=== PATIENT | female | born 1950 | race Caucasian/White ===

== ENCOUNTER 2017-01-08 11:10 | Emergency (ER) | payer MEDICARE, OTHER ==
--- NOTE | ~2017-01-08 | ER ---
PATIENT'S NAME: YAMILET MENDOZA [facility] AGE: 66 Y [address] ROOM: [place] [id number] LOCATION: [facility] ADMIT DATE: 01/08/2017 ER/Outpatient Report DISCHARGE DATE: 01/08/2017 FAMILY PHYSICIAN: PHYSICIAN, NO ATTENDING PHYSICIAN: Ian Asher TIME OF ARRIVAL: 1110 hours. TIME OF EVALUATION: 1122 hours. CHIEF COMPLAINT: Shortness of breath. HISTORY OF PRESENT ILLNESS: The patient is a 66-year-old female who presents to the emergency department today with a chief complaint of shortness of breath. She reports she has had a productive cough and it is whitish type phlegm. She does report that she has some chest pain as well. This is a sharp pain. It is worse when she breathes and worse when she coughs. It is currently 8/10 in severity. It is in the center of her chest. There is no radiation. No nausea or vomiting. Denies any fevers or chills. No diaphoresis. The patient has recently traveled she is visiting. PAST MEDICAL HISTORY: Xcw-oddmqeb-iqegiwjav diabetes, COPD, and celiac sprue. PAST SURGICAL HISTORY: None reported. SOCIAL HISTORY: The patient smokes. Denies any alcohol or illicit drug use. ALLERGIES: NO KNOWN DRUG ALLERGIES. MEDICATIONS: Please see list. PRIMARY CARE DOCTOR: None, no local. REVIEW OF SYSTEMS: All systems are reviewed by myself and negative with the exception of those PATIENT'S NAME: YAMILET MENDOZA [facility] AGE: 66 Y [address] ROOM: [place] [address] LOCATION: [facility] ADMIT DATE: 01/08/2017 ER/Outpatient Report DISCHARGE DATE: 01/08/2017 FAMILY PHYSICIAN: PHYSICIAN, NO ATTENDING PHYSICIAN: Ian Asher discussed in HPI and past medical history. PHYSICAL EXAMINATION: VITAL SIGNS: Weight 68 kg. Blood pressure 186/86, pulse 73, respiratory rate 16, temperature 97.8, and oxygen saturation 94% on room air. GENERAL: The patient is a 66-year-old female, appears stated age, in no acute distress. HEENT: Normocephalic, atraumatic. Pupils are equal, round, and reactive to light. NECK: Supple. There is no nuchal rigidity. CARDIOVASCULAR: Regular rate and rhythm. No murmurs, rubs, or gallops. LUNGS: Diminished diffusely with mild expiratory wheezes noted. ABDOMEN: Soft, nontender, and nondistended. No rebound, rigidity, or guarding. MUSCULOSKELETAL: The patient moves all 4 extremities. SKIN: Warm and dry. There are no rashes or lesions noted. LABS AND X-RAYS: CBC is unremarkable. Coags are normal. CMP is unremarkable. LFTs normal. Mag is normal. CK, CK-MB, and troponin are normal. Pro-BNP is normal. D- dimer is normal. Chest x-ray shows no acute process. EKG is obtained, interpreted by myself, shows sinus bradycardia with a rate of 58, normal axis, normal interval. No ST-elevation, ST-depression, or T-wave inversions are noted. IMPRESSION: 1. Acute exacerbation chronic obstructive pulmonary disease. 2. Initial visit. EMERGENCY DEPARTMENT COURSE: The patient brought back to the examination room. Seen and evaluated by myself. IV is established. Laboratory analysis and imaging are obtained as described above. The patient is given 125 mg of Solu-Medrol IV as well as one [place] p.o. I have discussed results of the testing with the patient. It does appear to be consistent with acute exacerbation of COPD. Her D-dimer is negative, which puts her at low-risk for pulmonary embolism as cause of this. She is not hypoxic at this time. I do feel she is safe for further outpatient evaluation and treatment. I have discussed I would like her to follow up with primary care doctor in 2-3 days for reevaluation. I have discussed return to care instructions including worsening symptoms or any other concerns to return to the emergency department as soon as possible. Written a prescription for doxycycline as well as prednisone. The patient is agreeable and is agreeable without further questions at this time. DISPOSITION: PATIENT'S NAME: YAMILET MENDOZA [facility] AGE: 66 Y [address] ROOM: [place], [place] [address] LOCATION: [facility] ADMIT DATE: 01/08/2017 ER/Outpatient Report DISCHARGE DATE: 01/08/2017 FAMILY PHYSICIAN: PHYSICIAN, NO ATTENDING PHYSICIAN: Ian Asher The patient is discharged home in good condition. DO CYN YIP/jayna /[id number] d: 01/09/17726 t: 01/09/17 0932, OUTPATIENT REPORT
[2017-01-08 11:51] LABS: BASOPHIL # 0.1 K/uL (0.0-0.2); BASOPHIL % 0.7 %; EOSINOPHIL # 0.3 K/uL (0.0-0.5); EOSINOPHIL % 3.8 %; HEMOGLOBIN 15.3 g/dL (10.0-15.0); IMMATURE GRANULOCYTE % 0.4 %; LYMPHOCYTE # 2.8 K/uL (0.8-4.0); LYMPHOCYTE % 39.2 %; MCH 31.2 pg (27.0-34.0); MCV 91.8 fl (83.0-98.0); MONOCYTE # 0.5 K/uL (0.0-1.0); MONOCYTE % 6.8 %; NEUTROPHIL # (ANC) 3.5 K/uL (1.8-7.8); NEUTROPHIL % 49.1 %; NRBC % 0 /100WBC (0-0.00); PLATELET COUNT 247 K/uL (150-450); RDW-CV 13.2 % (11.9-14.6); WBC 7.1 K/uL (4.0-11.0)
[2017-01-08 12:01] LABS: INR - (THERAPEUTIC) 0.98 (0.92-1.07); PROTIME 10.3 SECONDS (9.8-11.4); PTT 27 SECONDS (25-32)
[2017-01-08 12:15] LABS: ALBUMIN 3.7 gm/dL (3.5-5.0); ALK PHOS 39 IU/L (33-138); ALT 32 IU/L (12-78); ANION GAP 12.2 (10.0-19.0); AST 18 IU/L (10-40); BLOOD UREA NITROGEN 15 mg/dL (6-24); CALCIUM 8.4 mg/dL (8.5-10.5); CHLORIDE 109 mMol/L (96-110); CO2 26 mMol/L (22-32); CPK 120 IU/L (21-215); CREATININE 0.7 mg/dL (0.5-1.1); ESTIMATED GFR (MDRD EQUATION) > 60; MAGNESIUM 1.9 mg/dL (1.8-2.6); POTASSIUM 4.2 mMol/L (3.7-5.1); SODIUM 143 mMol/L (135-145); TOTAL BILIRUBIN 0.4 mg/dL (0.0-1.5)
== END 2017-01-08 13:51 | disposition disaster alternative care site (69) ==
LOC: GMED 11:10
PROVIDERS: Emergency Medicine
DX: J44.1 Chronic obstructive pulmonary disease with (acute) exacerbation (principal); E11.9 Type 2 diabetes mellitus without complications; F17.200 Nicotine dependence, unspecified, uncomplicated
CPT/HCPCS: J2930